=== PATIENT | female | born 1960 | race Caucasian/White ===

== ENCOUNTER 2017-06-04 14:57 | Outpatient (CLI) | payer OTHER ==
[~2017-06-04] VITALS: Ht 147.3 cm; Wt 61.4 kg
[2017-06-04 15:05] VITALS: BP 140/65; PULSE 74; RESP 18; Ht 147.3 cm; Wt 61.4 kg
[2017-06-04] MEDS ORDERED: LISI10TA2 PO (15:17)
[2017-06-04] MEDS ORDERED: ASPI-664 PO (15:17)
[2017-06-04] MEDS ORDERED: GEMF600T60 PO (15:17)
--- NOTE | 2017-06-04 15:51 | PN ---
Date/Time of Note Date/Time of Note DATE: 06/04/17 TIME: 15:46 Outpatient Progress Note Chief Complaint Chest pain/hypertension/abdominal pain HPI Patient was recently admitted with a chest pain, no chest pain at present, no palpitation, no dizziness, Hypertension/no headache or dizziness, no impaired vision, no local focal weakness, Abdominal pain/patient has a left abdominal pain, mostly lower quadrant, patient also has pain in the flank and back on the left side, no fever chill, no frequency urgency, no blood in the urine, Review of Systems Const: No Fever, no chills, no Wt. loss, no Fatigue, normal appetite, no diaphoresis. Eyes: No pain, no discharge, no redness, no visual change, no foreign body. ENT: No pain, no bleeding, no congestion, no sore throat, no dysphagia, no discharge or rhinitis. Lymph: No adenopathy, no tender nodes, no lymphedema. Resp: No SOB, no cough, no sputum, no wheezing, no chest pain. CV: No chest pain, no palpitaions, no KUNZ, no PND, no edema. GI: Normal appetite, left lower quadrant abdominal and also left flank and slightly on back pain, pain, no nausea, no vomiting, no diarrhea, no blood, no constipation. : No frequency, no urgency, no dysuria, no hematuria, no flank pain, no discharge, no bleeding. Musc: N no back pain, no neck pain, no knee pain, no restricted ROM. Skin: No rash, no skin lesions, no erythema, no laceration, no bruising, no pruritus. Neuro: No ORDONEZ, no dizziness, no syncope, no seizure, no focal-weakness. Endo: No polyuria, no polydypsia, no dry-skin, no temp-intolerance. Psych: No hallucinations, no depression, no anxiety, no suicidal ideation. Ext: No edema, no pain, no ulcer, no weakness. Physical Exam Vital Signs Date Time Temp Pulse Resp B/P Pulse Ox O2 Delivery O2 Flow Rate FiO2 06/04/17 15:05 98.2 74 18 140/65 94 Room Air General Appearance: A 56 year-old female who appears well-developed, well- nourished, in no acute distress. HEENT: Head normocephalic, atraumatic. Pupils equal, round, reactive to light and accommodate. Sclerae are no jaundice. Nasal turbinates pink without erythema or nasal discharge. Mucous membranes pink and moist without lesions. Oropharynx clear without any exudate or discharge. NECK: Supple. Trachea midline, No thyromegaly, No cervical lymphadenopathy, No mass, No carotid bruits, No JVD, Carotid pulses 2+ bilaterally. PULMONARY: Clear to auscultaion bilaterally, No retractions, Chest expansion symmetric bilaterally, no rales, no ronchi, no dulness on percussion. CARDIAC: Normal SI and S2, Regular rate and rythm, no murmur, gallop, or rub. GASTROINTESTINAL: Abdomen is soft, left lower quadrant tenderness, and also pain in her left flank and back, mild to moderate,, Non Rigid, No distention, Positive bowel sounds x4 quadrants, Liver normal. SKIN: Warm, dry, no rash, no bruise, no echmosis. EXTREMITIES: Bilateral lower extremities normal, no edema, no phlabitus, pulse palpable, no contracture. MUSCULOSKELETAL: Spine Normal, Non-tender, Normal range of motion, No swelling, no deformity, no clubbing, or cyanosis, the patient has no edema to bilateral lower extremities, dorsalis pedis pulses palpable bilaterally. NEUROLOGIC: The patient is awake, alert, oriented, responding to yes/no questions appropriately, moving all extremities, cranial nerve intact, normal strenght, normal power, normal coordination, normal gait. Allergies Coded Allergies: ibuprofen (Verified Allergy, Unknown, 06/04/17) PMH Chest pain/hypertension/anxiety Social Hx No smoking no drinking, Family Hx Noncontributory Assessment/Plan Impression Chest pain resolved Hypertension Abdominal pain Plan Patient was recently hospitalized with chest pain, patient at present no chest pain, patient has mostly left lower quadrant pain, and also has a pain in the back, mostly in the flank and back area, patient has no frequency urgency, patient has no UA done recently, Will do a UA culture and sensitivity Also will do ultrasound of the abdomen, rule out stone, Patient education done, patient high risk for repeated admission, Patient explained if there is moderately severe pain or fever to call us, and see us immediately, or go to ER, Medications Home Meds Reported Medications Lisinopril* (Lisinopril*) 10 Mg Tablet, 10 MG PO DAILY, #30 TAB 8/15/17 Gemfibrozil* (Gemfibrozil*) 600 Mg Tablet, 600 MG PO BID, TAB 06/04/17 Aspirin (Low Dose Aspirin) 81 Mg Tablet., 81 MG PO DAILY, #30 TAB 06/04/17 NNAMDI BENOIT MD Jun 04, 2017 15:51
== END 2017-06-04 16:52 | disposition home or self-care (01) ==
LOC: DCC 14:57
PROVIDERS: ATTEND Internal Medicine
DX: R07.9 Chest pain, unspecified (principal); F41.9 Anxiety disorder, unspecified; I10 Essential (primary) hypertension

== ENCOUNTER 2017-06-18 11:09 | Outpatient (CLI) | payer OTHER ==
[~2017-06-18] VITALS: Ht 149.9 cm; Wt 60.5 kg
[~2017-06-18 11:09] MED LIST: ASPI-664 PO; GEMF600T60 PO; LISI10TA2 PO
[2017-06-18 11:10] VITALS: BP 125/77; PULSE 68; RESP 16; Ht 149.9 cm; Wt 60.5 kg
--- NOTE | 2017-06-18 12:36 | PN ---
Date/Time of Note Date/Time of Note DATE: 06/18/17 TIME: 12:29 Outpatient Progress Note Chief Complaint Gallstones/abdominal pain/hypertension HPI Gallstones/patient was recently admitted with a chest pain, patient had epigastric discomfort, ultrasound shows gallstone, no jaundice, no fever chill, Abdominal discomfort patient has off-and-on abdominal discomfort, epigastric and left upper quadrant, no jaundice, no fever chill, Hypertension/no headache or dizziness, on medication, no side effect, Review of Systems Const: No Fever, no chills, no Wt. loss, no Fatigue, normal appetite, no diaphoresis. Eyes: No pain, no discharge, no redness, no visual change, no foreign body. ENT: No pain, no bleeding, no congestion, no sore throat, no dysphagia, no discharge or rhinitis. Lymph: No adenopathy, no tender nodes, no lymphedema. Resp: No SOB, no cough, no sputum, no wheezing, no chest pain. CV: No chest pain, no palpitaions, no KUNZ, no PND, no edema. GI: Normal appetite, mild epigastric and left upper quadrant pain, no nausea, no vomiting, no diarrhea, no blood, no constipation. : No frequency, no urgency, no dysuria, no hematuria, no flank pain, no discharge, no bleeding. Musc: No back pain, no neck pain, no knee pain, no restricted ROM. Skin: No rash, no skin lesions, no erythema, no laceration, no bruising, no pruritus. Neuro: No ORDONEZ, no dizziness, no syncope, no seizure, no focal-weakness. Endo: No polyuria, no polydypsia, no dry-skin, no temp-intolerance. Psych: No hallucinations, no depression, no anxiety, no suicidal ideation. Ext: No edema, no pain, no ulcer, no weakness. Physical Exam Vital Signs Date Time Temp Pulse Resp B/P Pulse Ox O2 Delivery O2 Flow Rate FiO2 06/18/17 11:10 98.4 68 16 125/77 96 Room Air General Appearance: A 56 year-old female who appears well-developed, well- nourished, in no acute distress. HEENT: Head normocephalic, atraumatic. Pupils equal, round, reactive to light and accommodate. Sclerae are no jaundice. Nasal turbinates pink without erythema or nasal discharge. Mucous membranes pink and moist without lesions. Oropharynx clear without any exudate or discharge. NECK: Supple. Trachea midline, No thyromegaly, No cervical lymphadenopathy, No mass, No carotid bruits, No JVD, Carotid pulses 2+ bilaterally. PULMONARY: Clear to auscultaion bilaterally, No retractions, Chest expansion symmetric bilaterally, no rales, no ronchi, no dulness on percussion. CARDIAC: Normal SI and S2, Regular rate and rythm, no murmur, gallop, or rub. GASTROINTESTINAL: Abdomen is soft, minimal abdominal discomfort, epigastric area ,, Non Rigid, No distention, Positive bowel sounds x4 quadrants, Liver normal. SKIN: Warm, dry, no rash, no bruise, no echmosis. EXTREMITIES: Bilateral lower extremities normal, no edema, no phlabitus, pulse palpable, no contracture. MUSCULOSKELETAL: Spine Normal, Non-tender, Normal range of motion, No swelling, no deformity, no clubbing, or cyanosis, the patient has no edema to bilateral lower extremities, dorsalis pedis pulses palpable bilaterally. NEUROLOGIC: The patient is awake, alert, oriented, responding to yes/no questions appropriately, moving all extremities, cranial nerve intact, normal strenght, normal power, normal coordination, normal gait. Allergies Coded Allergies: ibuprofen (Verified Allergy, Unknown, 06/04/17) PMH No change Social Hx No change Family Hx No change Assessment/Plan Impression Gallstones/abdominal pain/hypertension Plan Patient had ultrasound of the abdomen, which shows gallstone, patient is not jaundiced, but patient consistently complained of abdominal discomfort, We will do liver function tests, will check the alkaline phosphatase, if alkaline phosphatase is elevated she may need surgery, otherwise will monitor closely, Patient education also done about hypertension, patient to follow with the primary care physician, Medications Home Meds Reported Medications Lisinopril* (Lisinopril*) 10 Mg Tablet, 10 MG PO DAILY, #30 TAB 06/04/17 Gemfibrozil* (Gemfibrozil*) 600 Mg Tablet, 600 MG PO BID, TAB 06/04/17 Aspirin (Low Dose Aspirin) 81 Mg Tablet., 81 MG PO DAILY, #30 TAB 06/04/17 NNAMDI BENOIT MD Jun 18, 2017 12:36
== END 2017-06-18 16:42 | disposition home or self-care (01) ==
LOC: DCC 11:09
PROVIDERS: ATTEND Internal Medicine
DX: K80.80 Other cholelithiasis without obstruction (principal); R10.9 Unspecified abdominal pain; I10 Essential (primary) hypertension

== ENCOUNTER 2017-06-26 13:19 | Outpatient (CLI) | payer OTHER ==
[~2017-06-26] VITALS: Ht 149.9 cm; Wt 60.5 kg
[2017-06-26 13:08] VITALS: BP 127/73; PULSE 74; RESP 18; Ht 149.9 cm; Wt 60.5 kg
--- NOTE | 2017-06-26 20:13 | CONS ---
Date/Time of Note Date/Time of Note DATE: 06/26/17 TIME: 20:13 Assessment/Plan Assessment/Plan Additional Assessment/Plan [facility] INITIAL OUTPATIENT CONSULTATION NOTE DATE OF CONSULTATION: 06/26/2017 PLACE OF SERVICE: [facility] ASSESSMENT AND PLAN: A very-pleasant 56-year-old lady with only a few comorbidities, presenting with abdominal pain of unclear etiology. She certainly has gallstones and part of her pain could be explained by biliary colic. However, more of her pain is on the left side and she does not demonstrate typical symptoms of pain with intake of fatty meals, alcohol intake , chocolate or spicy food. For this reason, I have recommended more extensive workup to include CT scan and possibly GI consultation. Note that her last colonoscopy was more than a number of years ago (? 8 years ago). Explained to patient and her and answered all questions. I believe that the patient and family appear to understand and agreed with the plans. With above assessment, I've recommended the followin. CT scan of abdomen and pelvis with IV and oral contrast 2. Follow-up with us after above 3. Possible need for GI consultation Thank you very much for having me involved in the care of this very pleasant patient and wonderful family. If you have any questions, please feel free to contact me at [phone]. Nature of presenting problem: Moderate severity Please note that, given the multiple number of diagnoses or management options, the moderate amount and/or complexity of data needed to be reviewed, and moderate risk of complications and/or morbidity or mortality, this qualifies as moderate complexity type of decision-making. Disclaimer: Inadvertent spelling and grammatical errors are likely due to EHR/ dictation software use and do not reflect on the quality of delivered patient care. Also, please note that the electronic time recorded on this node does not necessarily reflect the actual time of the visit. Updated clinical summary: A very-pleasant 56-year-old lady with only a few comorbidities, presenting with abdominal pain of unclear etiology. Comorbidities: 1. BMI 26.9 2. Chest pain 3. Hypertension 4. Anxiety CONSULTATION REQUESTED BY: Benjy Centeno MD HISTORY OF PRESENT ILLNESS: The patient is a very pleasant 56-year-old lady whom we were kindly asked to consult regarding management of her abdominal pain. Her workup in the recent past has included an abdominal ultrasound on that showed a large, 19 x 16 mm gallstone within the gallbladder that otherwise appears to be normal and no evidence of Luke sign. Patient herself complains of left-sided abdominal pain and does not report any abdominal pain with intake of fatty meals, alcohol intake, chocolate or spicy food intake. She also does not report significant constipation or diarrhea, but she does have occasional blood on the toilet paper when she wipes herself. Her last colonoscopy was about 8 years ago. No weight loss or weight gain. No other major symptoms. ALLERGIES: Ibuprofen (unknown reaction) MEDICATIONS Documented in the electronic records and reviewed by me. Please see the electronic records for details. SOCIAL HISTORY: The patient lives with family. + Tob (5 cigarettes per day);- ETOH;-IVDU FAMILY HISTORY: There are no significant medical, surgical or oncologic issues in the family as reported by the patient or reflected in the chart. REVIEW OF SYSTEMS: Other than mentioned above, there were no other pertinent positives or pertinent negatives in an otherwise complete 14 point review of systems. PHYSICAL EXAMINATION GENERAL: The patient appears to be a very pleasant lady of descent lying in bed, appearing stated age,] and otherwise in no acute distress. BMI: 26.9 VITAL SIGNS: AVSS (please also see auto important data if available as well as the electronic records) HEENT: Normocephalic and atraumatic. Extraocular muscles and hearing are grossly intact bilaterally and symmetrically. Sclerae are nonicteric. Oral cavity is clear; oral mucosa appear to be pink and moist. Dentition: fair. NECK: Supple. There is no lymphadenopathy or JVD. There is no submental, submandibular or supraclavicular lymphadenopathy. CHEST: Rises symmetrically with each breath; patient is breathing comfortably. There are no audible wheezes, rales or rhonchi on the gross exam. HEART: Pulse is regular and palpable on the right wrist. Capillary refill is normal. Carotid pulses are palpable bilaterally and symmetrically in the neck. EXTREMITIES: Lower extremities contain no pitting edema around the ankles bilaterally and symmetrically. ABDOMEN: Abdomen is soft, minimally tender to palpation in the left upper quadrant and very minor tenderness in the right upper quadrant and nondistended. No evidence of ascites, organomegaly, caput medusae, engorged subcutaneous veins, or other abnormalities. There are no peritoneal signs or guarding. SKIN: Appears to be pink and feels warm to touch. NEUROLOGIC: Awake, alert, and follows commands appropriately. LABORATORY DATA: See below IMAGING: See electronic chart. Please note that I've personally reviewed all pertinent available images and I agree in general with their overall reported findings. Consultation Date/Type/Reason Admit Date/Time Exam/Review of Systems Vital Signs Vitals Vital Signs Date Time Temp Pulse Resp B/P Pulse Ox O2 Delivery O2 Flow Rate FiO2 06/26/17 13:08 98.3 74 18 127/73 97 Room Air HERNAN GASTON M.D. Jun 26, 2017 20:13
== END 2017-06-26 16:46 | disposition home or self-care (01) ==
LOC: HPC 13:19
PROVIDERS: ATTEND Transplant Surgery
DX: R10.9 Unspecified abdominal pain (principal); R07.9 Chest pain, unspecified; I10 Essential (primary) hypertension; F41.9 Anxiety disorder, unspecified
CPT/HCPCS: G0463

== ENCOUNTER 2017-11-06 14:24 | Outpatient (CLI) | END 2017-11-06 15:53 | disposition home or self-care (01) ==

== ENCOUNTER 2018-01-22 09:44 | Outpatient (CLI) | END 2018-01-22 15:29 | disposition home or self-care (01) ==